=== PATIENT | female | born 1990 | race Caucasian/White ===

== ENCOUNTER 2016-10-02 09:33 | Emergency (ER) | payer MEDICAID ==
[~2016-10-02] VITALS: Ht 162.6 cm; Wt 89.2 kg
[~2016-10-02 09:33] MED LIST: IBUP-1542 PO
[2016-10-02 09:42] VITALS: Ht 162.6 cm; Wt 89.2 kg
[2016-10-02] MEDS ORDERED: IBUP-1542 PO (11:50)
[2016-10-02] MEDS ORDERED: SODI126M NASAL (11:50)
[2016-10-02] MEDS ORDERED: PSEU120T51 PO (12:05)
--- NOTE | 2016-10-02 16:04 | ERD ---
ER Documentation Chief Complaint Date/Time DATE: 10/02/16 TIME: 16:01 Chief Complaint diane ear pain HPI 26-year-old female complaining of bilateral ear pain 5 days. Patient reports nasal congestion and sore throat, along with slight cough. Denies fever or chills. Denies shortness of breath. Denies abdominal pain, nausea, vomiting, or diarrhea. ROS All systems reviewed and are negative except as per history of present illness. Medications Home Meds Active Scripts Pseudoephedrine Hcl (Sudafed 12 Hour) 120 Mg Tablet.sa, 120 MG PO Q6 Y for NASAL CONGESTION, #10 Prov:MICHELLE GLORIA. CHIEF TECHNICIAN X RAY 10/02/16 Ibuprofen* (Motrin*) 600 Mg Tab, 600 MG PO Q6H Y for PAIN AND OR ELEVATED TEMP, #30 TAB Prov:MICHELLE GLORIA. CHIEF TECHNICIAN X RAY 10/02/16 Sodium Chloride (Saline Nasal Mist) 126 Ml Mist, 2 SPRAY NASAL Q2H Y for NASAL CONGESTION, #1 BOTTLE Prov:MICHELLE GLORIA. CHIEF TECHNICIAN X RAY 10/02/16 Ibuprofen* (Motrin*) 600 Mg Tab, 600 MG PO Q6, #30 TAB Prov:OLIVA COTTRELL P CHIEF TECHNICIAN X RAY 04/07/16 Allergies Allergies: Coded Allergies: No Known Allergy (Unverified , 04/07/16) PMhx/Soc History of Surgery: Yes (vericose vein procedure, tubal ligation.) Anesthesia Reaction: No Hx Neurological Disorder: No Hx Respiratory Disorders: No Hx Cardiac Disorders: No Hx Psychiatric Problems: No Hx Miscellaneous Medical Probl: No Hx Alcohol Use: Yes (social drinker) Hx Substance Use: No Hx Tobacco Use: Yes Smoking Status: Never smoker Physical Exam Vitals Vital Signs Date Time Temp Pulse Resp B/P Pulse Ox O2 Delivery O2 Flow Rate FiO2 10/02/16 09:42 98.1 78 20 125/76 99 Physical Exam General impression: Well-developed, well-nourished. Alert, oriented, in no acute distress Head: Normocephalic, atraumatic. Eyes: PERRL, EOM normal. Conjunctiva not injected. ENT: External canals clear. TM's bulging, pearly parker bilaterally with serous effusion. Nasal mucosa boggy and swollen. Oral mucosa and oropharynx are normal. Neck: Supple, nontender. No lymphadenopathy. No nuchal rigidity. Respiration: Normal respiratory effort. Lungs clear to auscultate bilaterally. No wheezes, rales or rhonchi. Cardiovascular: Regular rate and rhythm. No murmurs or extra heart sounds. Neuro: Mental status normal, speech normal. MUSHROOM GROWER grossly intact. Skin: Normal turgor. No rash or lesions. Psych: Normal mood and affect. Procedures/MDM Well-appearing 26-year-old female presented ED was symptoms and exam findings consistent with serous otitis media, likely secondary to allergic rhinitis. I doubt suppurative otitis media or otitis externa. I doubt pneumonia or bronchitis. Patient appears well, stable for discharge and outpatient management. Medical decision making shared with patient and family. Education provided to patient and family. Patient and family expressed understanding of the plan. Medications on discharge: Saline nasal spray, ibuprofen, Sudafed. Follow-up: Primary care provider in 2-3 days or return to ED if worse. Departure Diagnosis: Primary Impression: Serous otitis media Additional Impression: URI (upper respiratory infection) Condition: Good Patient Instructions: Adult Self-Care for Colds, Common Middle Ear Problems Additional Instructions: Llame al doctor MAANA y jeffrey mirian BRITTON PARA DENTRO DE 2-3 SCHNEIDER.Dgale a la secretaria que nosotros le instruimos hacer esta britton.Avise o llame si hudson condicin se empeora antes de la britton. Regresa aqui si peor o no mejor. MICHELLE GLORIA NP Oct 02, 2016 16:04
== END 2016-10-02 12:00 | disposition home or self-care (01) ==
LOC: FTE 09:33
DX: H65.93 Unspecified nonsuppurative otitis media, bilateral (principal); J06.9 Acute upper respiratory infection, unspecified; Z87.891 Personal history of nicotine dependence
CPT/HCPCS: 99283

== ENCOUNTER 2017-01-03 09:50 | Emergency (ER) | payer MEDICAID ==
[~2017-01-03] VITALS: Ht 167.6 cm; Wt 81.5 kg
[~2017-01-03 09:50] MED LIST changes: +PSEU120T51 PO; +SODI126M NASAL
[2017-01-03 09:52] VITALS: Ht 167.6 cm; Wt 81.5 kg
[2017-01-03] MEDS ORDERED: PENICILLIN G BENZ 1.2 MIL UNIT SYG IM ONE (10:30)
--- NOTE | 2017-01-03 10:31 | ERD ---
ER Documentation Chief Complaint Date/Time DATE: 01/03/17 TIME: 10:26 Chief Complaint Complains of sorethroat x 1 week HPI Patient is a 26-year-old female who presents to the ED with sore throat, body aches and change in voice 1 week. She states that she has had multiple episodes of strep in the past and this is similar to what she has experienced. She states that she took a few doses of amoxicillin that her mom gave her from [place]. She states that she has had tactile fevers at home. Denies vomiting or diarrhea or abdominal pain. Denies chest pain or cough or shortness of breath. Denies headache or dizziness, neck pain or neck stiffness. Denies seizures or rashes. No other complaints. ROS All systems reviewed and are negative except as per history of present illness. Medications Home Meds Active Scripts Pseudoephedrine Hcl (Sudafed 12 Hour) 120 Mg Tablet.sa, 120 MG PO Q6 Y for NASAL CONGESTION, #10 Prov:MICHELLE GLORIA. EXTRACT WRINGER 10/02/16 Ibuprofen* (Motrin*) 600 Mg Tab, 600 MG PO Q6H Y for PAIN AND OR ELEVATED TEMP, #30 TAB Prov:MICHELLE GLORIA. EXTRACT WRINGER 10/02/16 Sodium Chloride (Saline Nasal Mist) 126 Ml Mist, 2 SPRAY NASAL Q2H Y for NASAL CONGESTION, #1 BOTTLE Prov:MICHELLE GLORIA. EXTRACT WRINGER 10/02/16 Ibuprofen* (Motrin*) 600 Mg Tab, 600 MG PO Q6, #30 TAB Prov:RONIT,OLIVA P EXTRACT WRINGER 04/07/16 Allergies Allergies: Coded Allergies: No Known Allergy (Unverified , 04/07/16) PMhx/Soc History of Surgery: Yes (vericose vein procedure, tubal ligation.) Anesthesia Reaction: No Hx Neurological Disorder: No Hx Respiratory Disorders: No Hx Cardiac Disorders: No Hx Psychiatric Problems: No Hx Miscellaneous Medical Probl: No Hx Alcohol Use: Yes (social drinker) Hx Substance Use: No Hx Tobacco Use: Yes Smoking Status: Current every day smoker FmHx Family History: No coronary disease, No diabetes, No other Physical Exam Vitals Vital Signs Date Time Temp Pulse Resp B/P Pulse Ox O2 Delivery O2 Flow Rate FiO2 01/03/17 09:52 98.0 79 20 118/59 98 Physical Exam GENERAL: Well-developed, well-nourished female. Appears in no acute distress. HEAD: Normocephalic, atraumatic. EYES: Pupils are equally reactive bilaterally. EOMs grossly intact. No conjunctival erythema. ENT: Moist mucous membranes. No uvula deviation. No kissing tonsils. No exudates. Erythematous throat and swollen tonsils. NECK: Supple. No lymphadenopathy or thyromegaly. No meningismus. negative kernig. negative brudinski. LUNG: Clear to auscultation bilaterally. No rhonchi, wheezing, rales or coarse breath sounds. HEART: Regular rate and rhythm. No murmurs, rubs or gallops. Extremities: Equal pulses bilaterally. No peripheral clubbing, cyanosis or edema. No unilateral leg swelling. NEUROLOGIC: Alert and oriented. Moving all four extremities. 5/5 strength in all extremities. Normal speech. Steady gait. SKIN: Normal color. Warm and dry. No rashes or lesions. Capillary refill < 2 seconds Results 24 hrs Current Medications Medications (Trade) Dose Ordered Sig/Yuki Route PRN Reason Start Time Stop Time Status Last Admin Dose Admin Penicillin G Benzathine (Bicillin La) 1,200,000 units ONCE ONCE IM 01/03/17 10:30 01/03/17 10:31 Procedures/MDM ER COURSE: I kept the patient and/or family informed of laboratory and diagnostic imaging results throughout the emergency room course. MEDICATIONS Penicillin IM. Tolerated well with no adverse reaction MEDICAL DECISION MAKING: This is a 26-year-old female who presents with sore throat 1 week. Vital signs were reviewed. Patient is afebrile. Patient is not hypoxic. Patient is not toxic or ill-appearing. Patient likely has pharyngitis of strep etiology. Low suspicion for peritonsillar abscess, mononucleosis, dental abscess. Low suspicion for sepsis. DISCHARGE: At this time, patient is stable for discharge and outpatient management with no new complaints during the ER course. Patient was sent home with ibuprofen and tylenol. Patient will be discharged home with instructions to recheck for new or worsening symptoms such as fever, nausea, weakness, LOC and to follow up with primary care in the next 1-2 days. Patient was advised to return to the ER for any new or worsening symptoms. Plan was discussed and patient and/or family understands and agrees. Home instructions were given. Departure Diagnosis: Primary Impression: Pharyngitis Pharyngitis/tonsillitis etiology: unspecified etiology Qualified Code: J02.9 - Pharyngitis, unspecified etiology Condition: Stable ADELIA RICH PA-C Jan 03, 2017 10:31
[2017-01-03] MEDS ORDERED: ACET500C5 PO (10:32)
[2017-01-03] MEDS ORDERED: IBUP-1542 PO (10:32)
== END 2017-01-03 10:40 | disposition home or self-care (01) ==
LOC: FTE 09:50
DX: J02.9 Acute pharyngitis, unspecified (principal); F17.210 Nicotine dependence, cigarettes, uncomplicated
CPT/HCPCS: 96372; J0561